=== PATIENT | male | born 1980 | race Caucasian/White ===

== ENCOUNTER 2023-06-25 17:17 | Emergency (ER) | payer MEDICAID ==
[~2023-06-25] VITALS: Ht 165.1 cm; Wt 86.6 kg
[2023-06-25 17:25] VITALS: BP 138/89; PULSE 90; RESP 20; TEMP 98.3; O2SAT 98
[2023-06-25 18:10] LABS: BASOPHILS % (AUTO) 0.3 % (0.0-2.0); EOSINOPHILS # (AUTO) 0.2 K/uL (0-0.4); EOSINOPHILS % (AUTO) 1.6 % (0.0-4.0); HEMATOCRIT 46.1 % (36-52); HEMOGLOBIN 15.7 g/dL (12.0-18.0); LYMPHOCYTES # (AUTO) 2.6 K/uL (2.0-11.5); LYMPHOCYTES % (AUTO) 21.4 % (20.5-51.1); MEAN CORPUSCULAR HEMOGLOBIN 31 pg (27-31); MEAN CORPUSCULAR HGB CONC 34 g/dL (33-37); MEAN CORPUSCULAR VOLUME 92.3 fL (80-94); MONOCYTES # (AUTO) 1.3 K/uL (0.8-1.0); MONOCYTES % (AUTO) 10.9 % (1.7-9.3); NEUTROPHILS # (AUTO) 7.9 K/uL (1.8-7.7); NEUTROPHILS % (AUTO) 65.8 % (42.2-75.2); PLATELET COUNT (AUTO) 194 K/uL (140-450); RED CELL DISTRIBUTION WIDTH 13.4 % (11.6-13.7)
[2023-06-25 18:19] VITALS: BP 138/89; PULSE 90; RESP 20; TEMP 98.3
[2023-06-25 18:22] LABS: ALBUMIN 3.5 g/dL (3.4-5.0); ANION GAP 13.6 (8-16); CALCIUM 8.1 mg/dL (8.5-10.1); CARBON DIOXIDE 25.2 mmol/L (21-32); MAGNESIUM 1.6 mg/dL (1.8-2.4); PHOSPHORUS 2.6 mg/dL (2.5-4.9); POTASSIUM 3.8 mmol/L (3.5-5.1); TOTAL BILIRUBIN 0.4 mg/dL (0.0-1.0); TOTAL PROTEIN, SERUM 6.9 g/dL (6.4-8.2)
[2023-06-25] MEDS ORDERED: diazePAM 5 MG TAB PO ONE (18:40)
[2023-06-25] MEDS ORDERED: KETOROLAC 30 MG/ML VIAL IM ONE (18:40)
[2023-06-25 18:45] VITALS: O2SAT 98
[2023-06-25] MEDS: LIDOCAINE 5% 1 EA PATCH TP SCH ×2 (19:12→19:17)
[2023-06-25] MEDS ORDERED: CYCL-711 PO (19:40)
== END 2023-06-25 19:50 | disposition home or self-care (01) ==
LOC: MED 17:17
DX: M62.838 Other muscle spasm (principal); Z90.49 Acquired absence of other specified parts of digestive tract; Z98.890 Other specified postprocedural states; Z79.899 Other long term (current) drug therapy
CPT/HCPCS: 36415; 71045; 80053; 83735; 84100; 84484; 85025; 93005; 96372; 99285; J1885